=== PATIENT | female | born 1965 | race Caucasian/White ===

== ENCOUNTER 2016-09-27 15:14 | Emergency (ER) | payer OTHER ==
--- NOTE | ~2016-09-27 | CR72 ---
[facility]. [facility] A Service of [facility] & [facility] RADIOLOGY TEXT RESULTS PATIENT: SILVIA GARCIA LOCATION: SED : 63 UNIT #: [id number] AGE: [address]: Shari Garcia MD SEX: F ORDER DR: [id number] [place] [id number] E MR#: [id number] Acc #: [id number] NAME: SILVIA GARCIA : 1965 SEX: F STUDY DATE/TIME: 09/27/2016 15:48 UNIT: SED ROOM: STUDY DESCRIPTION: CR Chest Single View Portable Attending Physician: Shari Garcia M.D. Referring Physician: Shari Garcia M.D. Ordering Physician: Shari Garcia M.D. Primary Care Physician: Norma Campbell M.D. MEDICAL IMAGING REPORT This report is preliminary unless electronic signature is present. EXAM Portable chest. DATE OF EXAM 09/27/2016 INDICATION Chest pain, hypertension. Symptoms for 1-1/2 weeks. FINDINGS A single AP portable view of the chest shows both lungs to be clear. The heart is normal in size. The mediastinal contour is normal. No significant bone abnormalities are seen. IMPRESSION Normal portable chest. Dictated by... Franky Mahtis Jr., M.D. THIS IS AN ELECTRONICALLY VERIFIED REPORT Franky Mathis Jr., M.D. at 09/28/2016 8:26 AM RIGOBERTO/faith TD: 09/27/2016 18:20 JOB #: [id number] MEDICAL IMAGING REPORT Page 1 of 1
--- NOTE | ~2016-09-27 | EKG ---
PATIENT: SILVIA GARCIA UNIT #: [id number] Ventricular Rate: 80 BPM Atrial Rate: 80 BPM P-R Interval: 164 ms QRS Duration: 76 ms Q-T Interval: 378 ms QTC Calculation(Bezet): 435 ms P [place]: 52 degrees Calculated R [place]: 4 degrees Calculated T [place]: 25 degrees Diagnosis Line: Normal sinus rhythm Diagnosis Line: Normal ECG Diagnosis Line: No previous ECGs available Diagnosis Line: Confirmed by SANDRA POLK MD ([id number]) on 09/29/2016 Diagnosis Line: 8:04:43 PM INTERPRETING MD: FELICITAS GALLAGHER
--- NOTE | ~2016-09-27 | CT16 ---
[facility]. [facility] A Service [facility] RADIOLOGY TEXT RESULTS PATIENT: SILVIA GARCIA LOCATION: SED : 63 UNIT #: [id number] AGE: [address]: Shari Garcia MD SEX: F ORDER DR: [id number] [address] [address] [id number] E MR#: [id number] Acc #: [id number] NAME: SILVIA GARCIA : 1965 SEX: F STUDY DATE/TIME: 09/27/2016 17:11 UNIT: SED ROOM: STUDY DESCRIPTION: CT Angio Chest for PE Attending Physician: Shari Garcia M.D. Referring Physician: Shari Garcia M.D. Ordering Physician: Shari Garcia M.D. Primary Care Physician: Norma Campbell M.D. MEDICAL IMAGING REPORT This report is preliminary unless electronic signature is present. EXAM CT of the chest with IV contrast, CT angiography of the pulmonary arteries. HISTORY Intermittent chest pain for 1.5 weeks TECHNIQUE Axial imaging of the chest was performed with an IV bolus of contrast. CT angiography was performed through the aorta and pulmonary arteries with 3-D MIP multiplanar reconstructions. This CT exam was performed with one or more of the following radiation dose reduction techniques: Automatic exposure control, adjustment of mA and/or kV according to patient size, and iterative reconstruction. FINDINGS Scans through the lung parenchyma are normal. Scans through the mediastinum are normal. There is diffuse hepatic steatosis. There are gallstones within the gallbladder. No acute findings in the upper abdomen. CT angiography through the pulmonary arteries shows no pulmonary artery filling defects; the pulmonary arteries are normal caliber. The aorta is of normal caliber with no evidence of aneurysm or dissection. No evidence of pleural or pericardial fluid. CONCLUSION 1. Diffuse hepatic steatosis. 2. Cholelithiasis. 3. No acute findings in the chest. No evidence of pulmonary embolism, no evidence of dissection and no evidence of pleural or pericardial fluid. [facility] A Service [facility] RADIOLOGY TEXT RESULTS PATIENT: SILVIA GARCIA LOCATION: [facility] : 63 UNIT #: [id number] AGE: [address]: Shari Garcia MD SEX: F ORDER DR: Dictated by... Christian Sims M.D. THIS IS AN ELECTRONICALLY VERIFIED REPORT Christian Sims M.D. at 09/29/2016 4:41 PM LESLIE/fidelia TD: 09/27/2016 21:21 JOB #: [id number] MEDICAL IMAGING REPORT Page 1 of 1
[~2016-09-27 15:14] MED LIST: ACULAR10 ML OP; CILOXAN5 ML OP; FLEXERIL10 MG PO; LEVOTHYROXINE PO; LISINOPRIL PO; SYNTHROID0.05 MG PO; VICODIN 5/1 TAB 5/50 PO
[2016-09-27] MEDS ORDERED: LISINOPRIL10 MG PO (15:31)
[2016-09-27] MEDS ORDERED: METFORMIN PO (15:31)
[2016-09-27] MEDS ORDERED: JARDIANCE10 MG PO (15:31)
[2016-09-27] MEDS ORDERED: SYNTHROID PO (15:32)
[2016-09-27 15:47] LABS: POC - CKMB <1.0 ng/mL (0.0-7.9)
[2016-09-27 15:48] LABS: POC - TROPONIN <0.05 ng/mL (<=0.05)
[2016-09-27 15:56] LABS: BASOPHIL% 0.7 % (0-2.5); EOSINOPHIL# 0.2 X10e3 (0-0.7); EOSINOPHIL% 3.3 % (0.0-7.0); HEMATOCRIT 35.7 % (35.0-45.0); HEMOGLOBIN 11.6 gm/dL (12.0-16.0); LYMPHOCYTE# 1.7 X10e3 (1.0-3.5); MEAN CELL VOLUME 77.6 FL (83-96); MEAN CORPUSCULAR HEMOGLOBIN 25.1 PG (28-34); MEAN CORPUSCULAR HGB CONC 32.4 g/dL (30-36); MEAN PLATELET VOLUME 7.7 FL (6.5-11.5); MONOCYTE# 0.5 X10e3 (0-1.0); MONOCYTE% 7.8 % (3.0-12.0); NEUTROPHIL# 4.3 X10e3 (1.5-7.1); NEUTROPHIL% 63.2 % (40-75); PLATELET COUNT 281 X10e3 (140-420); RED BLOOD COUNT 4.61 X10e (3.90-5.30); RED CELL DISTRIBUTION WIDTH 15.1 % (11.0-15.5); WHITE BLOOD COUNT 6.9 X10e3 (4.0-10.5)
[2016-09-27 15:57] LABS: DIFF IND NO
[2016-09-27 15:58] LABS: INR 0.9; PROTHROMBIN TIME (PATIENT) 10.1 SECONDS (9.5-12.4)
[2016-09-27 16:28] LABS: ALBUMIN SERUM 3.8 g/dL (3.5-5.0); ALKALINE PHOSPHATASE 46 U/L (32-92); ALT (SGPT) 34 U/L (10-40); AST (SGOT) 23 U/L (10-42); BILIRUBIN,TOTAL 0.3 mg/dL (0.2-2.0); BLOOD UREA NITROGEN 14 mg/dL (9-23); BUN/CREATININE RATIO 23.33; CALCIUM SERUM 8.2 mg/dL (8.4-10.2); CARBON DIOXIDE 25 mmol/L (22-31); CHLORIDE 109 mmol/L (100-111); CREATININE SERUM 0.6 mg/dL (0.6-1.4); GLOM FILT RATE Estimated 104.8 mL/min (>60); GLUCOSE FASTING 113 mg/dL (70-110); POTASSIUM 3.8 mmol/L (3.5-5.1); PROTEIN TOTAL SERUM 7.1 g/dL (6.0-8.3); SODIUM 135 mmol/L (135-145)
[2016-09-27 16:29] LABS: BILIRUBIN, DIRECT <0.1 mg/dL (0.0-0.2); BILIRUBIN,INDIRECT 0.2 mg/dL (0.0-0.9)
[2016-09-27 17:07] LABS: POC - CKMB <1.0 ng/mL (0.0-7.9); POC - TROPONIN <0.05 ng/mL (<=0.05)
== END 2016-09-27 19:16 ==
LOC: SED 15:14
PROVIDERS: Emergency Medicine
DX: R07.89 Other chest pain (principal); Z79.899 Other long term (current) drug therapy
CPT/HCPCS: 36415; 71010; 71275; 80048; 80076; 82553; 84484; 85025; 85379; 85610; 85730; 93005; 99285; Q9967